=== PATIENT | male | born 1970 | race Caucasian/White ===

== ENCOUNTER 2017-08-19 20:38 | Emergency (ER) | payer OTHER ==
[~2017-08-19] VITALS: Ht 175.3 cm; Wt 104.5 kg
[2017-08-19 20:47] VITALS: BP 181/119; PULSE 77; RESP 18; TEMP 97.9; O2SAT 97
[2017-08-19] MEDS ORDERED: HYDROmorphone HCL PF 2 MG/ML VIAL IVS ONE (21:15)
[2017-08-19] MEDS ORDERED: SODIUM CHLORIDE 0.9% FLUSH 10 ML FLUSH IV FLUSH PRN (21:15)
[2017-08-19] MEDS ORDERED: ALUMINUM/MAGNESIUM/SIMETH 30 ML CUP PO ONE (21:15)
[2017-08-19] MEDS ORDERED: LIDOCAINE VISCOUS 2% SOLN 15 ML UDC PO ONE (21:15)
[2017-08-19] MEDS ORDERED: ONDANSETRON HCL 4 MG/2 ML VIAL IVP ONE (21:15)
[2017-08-19 21:26] LABS: AUTOMATED NEUTROPHIL # 6.6 TH/MM3 (1.8-7.7); BASOPHIL # 0.1 TH/MM3 (0-0.2); BASOPHIL % 0.7 % (0.0-2.0); BILIRUBIN, URINE NEG (NEG); BLOOD, URINE TRACE (NEG); EOSINOPHIL # 0.1 TH/MM3 (0-0.4); EOSINOPHIL % 1.5 % (0.0-4.0); GLUCOSE,URINE NEG (NEG); HEMATOCRIT 46.2 % (39.0-51.0); HEMOGLOBIN 15.6 GM/DL (13.0-17.0); KETONE, URINE 15 mg/dL (NEG); LYMPH % 19.5 % (9.0-44.0); LYMPHOCYTE # 1.8 TH/MM3 (1.0-4.8); MEAN CELL VOLUME 88.6 FL (80.0-100.0); MEAN CORPUSCULAR HEMOGLOBIN 29.9 PG (27.0-34.0); MEAN CORPUSCULAR HGB CONC 33.8 % (32.0-36.0); MEAN PLATELET VOLUME 8.8 FL (7.0-11.0); MONO % 6.6 % (0.0-8.0); MONOCYTE # 0.6 TH/MM3 (0-0.9); NEUT % 71.7 % (16.0-70.0); NITRITE,URINE NEG (NEG); PH, URINE 6.5 (5.0-8.5); PLATELET COUNT 296 TH/MM3 (150-450); RED BLOOD COUNT 5.22 MIL/MM3 (4.50-5.90); RED CELL DISTRIBUTION WIDTH 13.6 % (11.6-17.2); URINE COLOR YELLOW (YELLW/STRAW); URINE LEUKOCYTE ESTERASE NEG (NEG); WHITE BLOOD COUNT 9.2 TH/MM3 (4.0-11.0)
[2017-08-19 21:30] LABS: RBC, URINE 0-2 /hpf (0-3); SQUAMOUS EPITHELIAL CELL URINE 0-5 /hpf (0-5); WBC, URINE 0-2 /hpf (0-5)
[2017-08-19 21:33] LABS: CHLORIDE 108 MEQ/L (98-107); SODIUM (NA) 140 MEQ/L (136-145)
[2017-08-19 21:37] LABS: ALBUMIN 4.3 GM/DL (3.4-5.0); BICARBONATE 27.6 MEQ/L (21.0-32.0); CALCIUM 9.5 MG/DL (8.5-10.1); GLUCOSE,RANDOM 94 MG/DL (74-106)
[2017-08-19 21:38] LABS: BLOOD UREA NITROGEN 23 MG/DL (7-18)
[2017-08-19 21:40] LABS: ALT (GPT) 35 U/L (12-78); AST (GOT) 27 U/L (15-37); GLOMERULAR FILTRATION RATE 72 ML/MIN (>89)
[2017-08-19 21:42] LABS: TOTAL BILIRUBIN ADULT 0.6 MG/DL (0.2-1.0); TOTAL PROTEIN 8.7 GM/DL (6.4-8.2)
[2017-08-19 21:43] LABS: ALKALINE PHOSPHATASE 57 U/L (45-117)
[2017-08-19 21:47] VITALS: O2SAT 97
[2017-08-19 21:50] VITALS: BP 160/110; PULSE 74; RESP 18; O2SAT 97
[2017-08-19] MEDS ORDERED: IOHEXOL 350 MG/ML 10 ML VIAL (for RAD DIAG) IVCONTRAST ONE (21:52)
--- NOTE | 2017-08-19 22:29 | RADRPT ---
EXAM DATE/TIME: 08/19/2017 21:45 [facility] COMPARISON: No previous studies available for comparison. INDICATIONS : Generalized abdominal pain. IV CONTRAST: 100 cc Omnipaque 350 (iohexol) IV ORAL CONTRAST: No oral contrast ingested. RADIATION DOSE: 19.61 CTDIvol (mGy) MEDICAL HISTORY : None SURGICAL HISTORY : None. ENCOUNTER: Initial ACUITY: 1 day PAIN SCALE: 10/10 LOCATION: Bilateral lower quadrant upper quadrant TECHNIQUE: Volumetric scanning of the abdomen and pelvis was performed. Using automated exposure control and ad justment of the mA and/or kV according to patient size, radiation dose was kept as low as reasonably achievable to obtain optimal diagnostic quality images. DICOM format image data is available electro nically for review and comparison. FINDINGS: LOWER LUNGS: The visualized lower lungs are clear. LIVER: Homogeneous density without lesion. There is no dilation of the biliary tree. Faint gallstones are p resent, measuring up to 21 mm. No duct stone or ductal dilatation.. SPLEEN: Normal size without lesion. PANCREAS: Within normal limits. KIDNEYS: Normal in size and shape. There is no mass, stone or hydronephrosis. ADRENAL GLANDS: Within normal limits. VASCULAR: There is no aortic aneurysm. BOWEL/MESENTERY: The stomach, small bowel, and colon demonstrate no acute abnormality. There is no free intraperitone al air or fluid. Normal appendix. ABDOMINAL WALL: Within normal limits. RETROPERITONEUM: There is no lymphadenopathy. BLADDER: No wall thickening or mass. REPRODUCTIVE: Within normal limits. INGUINAL: There is no lymphadenopathy or hernia. MUSCULOSKELETAL: No acute bony abnormality. CONCLUSION: 1. Cholelithiasis without biliary obstruction or convincing evidence of cholecystitis. 2. Otherwise negative CT of the abdomen and pelvis. Jamil Ribeiro MD on August 19, 2017 at 22:25 Board Certified Radiologist. This report was verified electronically.
--- NOTE | 2017-08-19 22:30 | PD ---
HPI Chief Complaint: GI Complaint Time Seen by Provider: 21:02 Travel History International Travel<30 days: No Contact w/Intl Traveler<30days: No Traveled to known affect area: No History of Present Illness HPI The patient is 47 years old and reports a sudden onset of severe abdominal pain. This started about 6 PM, approximately 3 hours prior to ER arrival. Location is generalized though more or less periumbilical in distribution when he points to the area of pain. There is been no vomiting or diarrhea. No similar prior episodes. No fever. Patient denies any unusual food. He has no past medical history. [facility] Past Medical History Medical History: Denies Significant Hx Diminished Hearing: No Tetanus Vaccination: Unknown Influenza Vaccination: No Past Surgical History Surgical History: No Previous Surgery Social History Alcohol Use: No Tobacco Use: No Substance Use: No Allergies-Medications (Allergen,Severity, Reaction): Coded Allergies: No Known Allergies (Verified Allergy, Unknown, 08/19/17) Reported Meds & Prescriptions Reported Meds & Active Scripts Active Zofran Odt (Ondansetron Odt) 4 Mg Tab 4 Mg SL Q8HR PRN Tramadol (Tramadol HCl) 50 Mg Tab 100 Mg PO Q6H PRN Review of Systems Except as stated in HPI: all other systems reviewed are Neg General / Constitutional: No: Fever Physical Exam Narrative GENERAL: 47-year-old male well-nourished well-developed moderate distress Vital Signs Date Time Temp Pulse Resp B/P (MAP) Pulse Ox O2 Delivery O2 Flow Rate FiO2 08/19/17 21:50 74 18 160/110 (127) 97 Room Air 08/19/17 21:47 97 08/19/17 20:49 18 08/19/17 20:47 97.9 77 18 181/119 (139) 97 SKIN: Warm and dry. HEAD: Atraumatic. Normocephalic. EYES: Pupils equal and round. No scleral icterus. No injection or drainage. ENT: No nasal bleeding or discharge. Mucous membranes pink and moist. NECK: Trachea midline. No JVD. CARDIOVASCULAR: Regular rate and rhythm. RESPIRATORY: No accessory muscle use. Clear to auscultation. Breath sounds equal bilaterally. GASTROINTESTINAL: Soft. Generalized nonspecific tenderness with some guarding MUSCULOSKELETAL: Extremities without clubbing, cyanosis, or edema. No obvious deformities. NEUROLOGICAL: Awake and alert. No obvious cranial nerve deficits. Motor grossly within normal limits. Five out of 5 muscle strength in the arms and legs. Normal speech. PSYCHIATRIC: Appropriate mood and affect; insight and judgment normal. Data Data Last Documented VS Vital Signs Date Time Temp Pulse Resp B/P (MAP) Pulse Ox O2 Delivery O2 Flow Rate FiO2 08/20/17 00:07 74 18 97 08/19/17 23:53 Room Air 08/19/17 20:47 97.9 Orders Orders Complete Blood Count With Diff (08/19/17 21:07) Comprehensive Metabolic Panel (08/19/17 21:07) Lipase (08/19/17 21:07) Lactic Acid (08/19/17 21:07) Urinalysis - C+S If Indicated (08/19/17 21:07) Iv Access Insert/Monitor (08/19/17 21:07) Ecg Monitoring (08/19/17 21:07) Oximetry (08/19/17 21:07) Hydromorphone Pf Inj (Dilaudid Pf Inj) (08/19/17 21:15) Ondansetron Inj (Zofran Inj) (08/19/17 21:15) Sodium Chloride 0.9% Flush (Ns Flush) (08/19/17 21:15) Al-Mag Hy-Si 40-40-4 Mg/Ml Liq (Mag-Al P (08/19/17 21:15) Lidocaine 2% Viscous (Xylocaine 2% Visco (08/19/17 21:15) Ct Abd/Pel W Iv Contrast(Rout) (08/19/17 21:07) Drug Screen, Random Urine (08/19/17 21:39) Alcohol (Ethanol) (08/19/17 21:10) Iohexol 350 Inj (Omnipaque 350 Inj) (08/19/17 21:52) Us Abdomen Gallbladder (08/19/17 ) Ed Discharge Order (08/19/17 23:41) Oxycodone-Acetamin 5-325 Mg (Percocet (08/20/17 00:00) Labs Laboratory Tests Test 08/19/17 21:10 White Blood Count 9.2 TH/MM3 Red Blood Count 5.22 MIL/MM3 Hemoglobin 15.6 GM/DL Hematocrit 46.2 % Mean Corpuscular Volume 88.6 FL Mean Corpuscular Hemoglobin 29.9 PG Mean Corpuscular Hemoglobin Concent 33.8 % Red Cell Distribution Width 13.6 % Platelet Count 296 TH/MM3 Mean Platelet Volume 8.8 FL Neutrophils (%) (Auto) 71.7 % Lymphocytes (%) (Auto) 19.5 % Monocytes (%) (Auto) 6.6 % Eosinophils (%) (Auto) 1.5 % Basophils (%) (Auto) 0.7 % Neutrophils # (Auto) 6.6 TH/MM3 Lymphocytes # (Auto) 1.8 TH/MM3 Monocytes # (Auto) 0.6 TH/MM3 Eosinophils # (Auto) 0.1 TH/MM3 Basophils # (Auto) 0.1 TH/MM3 CBC Comment DIFF FINAL Differential Comment Urine Color YELLOW Urine Turbidity CLEAR Urine pH 6.5 Urine Specific Rough And Ready 1.020 Urine Protein NEG mg/dL Urine Glucose (UA) NEG mg/dL Urine Ketones 15 mg/dL Urine Occult Blood TRACE Urine Nitrite NEG Urine Bilirubin NEG Urine Urobilinogen 1.0 MG/DL Urine Leukocyte Esterase NEG Urine RBC 0-2 /hpf Urine WBC 0-2 /hpf Urine Squamous Epithelial Cells 0-5 /hpf Urine Bacteria NONE /hpf Microscopic Urinalysis Comment CULT NOT INDICATED Blood Urea Nitrogen 23 MG/DL Creatinine 1.10 MG/DL Random Glucose 94 MG/DL Total Protein 8.7 GM/DL Albumin 4.3 GM/DL Calcium Level 9.5 MG/DL Alkaline Phosphatase 57 U/L Aspartate Amino Transf (AST/SGOT) 27 U/L Alanine Aminotransferase (ALT/SGPT) 35 U/L Total Bilirubin 0.6 MG/DL Sodium Level 140 MEQ/L Potassium Level 3.8 MEQ/L Chloride Level 108 MEQ/L Carbon Dioxide Level 27.6 MEQ/L Anion Gap 4 MEQ/L Estimat Glomerular Filtration Rate 72 ML/MIN Lactic Acid Level 1.2 mmol/L Lipase 223 U/L Urine Opiates Screen NEG Urine Barbiturates Screen NEG Urine Amphetamines Screen NEG Urine Benzodiazepines Screen NEG Urine Cocaine Screen NEG Urine Cannabinoids Screen NEG Ethyl Alcohol Level LESS THAN 3 MG/DL [facility] Medical Decision Making Medical Screen Exam Complete: Yes Emergency Medical Condition: Yes Medical Record Reviewed: Yes Differential Diagnosis Constipation, Gastritis, Acute Cholecystitis, Biliary Colic, Pancreatitis, JORDAN , Hepatitis, Bowel Obstruction, Cystitis, Mesenteric Ischemia, AAA, Appendicitis , Renal Stone/Hydronephrosis, GERD, perforated viscous, bowel obstruction Narrative Course CBC & BMP Diagram 08/19/17 21:10 Total Protein 8.7 H, Albumin 4.3, Calcium Level 9.5, Alkaline Phosphatase 57, Aspartate Amino Transf (AST/SGOT) 27, Alanine Aminotransferase (ALT/SGPT) 35, Total Bilirubin 0.6 Lipase is normal Urine drug screen is echevarria negative Alcohol levels less than 3 Patient received Dilaudid and IV fluids as well as Zofran because moderate to severe distress appeared present at the time of evaluation. The patient is resting comfortably and feels better, is alert and in no distress. The patients results and examination findings were discussed. The repeat examination is unremarkable and benign. The history, exam, diagnostic testing, and current condition do not suggest any significant pathology to warrant further testing, continued ED treatment, admission, or surgical evaluation at this point. The vital signs have been stable. The patient does not have uncontrollable pain, intractable vomiting, or other significant symptoms. The patient's condition is stable and appropriate for discharge. The patient will pursue further outpatient evaluation with a primary care physician or other designated or consulting physician as indicated in the discharge instructions. The patient expressed understanding and was agreeable with this plan. Diagnosis Primary Impression: Biliary colic Additional Impression: Fatty liver Referrals: Jarret Kirk MD call for appointment Med/Other Pt SpecificInfo: Prescription(s) given Scripts Ondansetron Odt (Zofran Odt) 4 Mg Tab 4 MG SL Q8HR Y for Nausea/Vomiting, #10 TAB 0 Refills Prov: To Alvarez MD 08/19/17 Tramadol (Tramadol) 50 Mg Tab 100 MG PO Q6H Y for PAIN, #20 TAB 0 Refills Prov: To Alvarez MD 08/19/17 Disposition: DISCHARGE HOME Condition: Stable To Alvarez MD Aug 19, 2017 22:30
--- NOTE | 2017-08-19 23:22 | RADRPT ---
EXAM DATE/TIME: 08/19/2017 22:53 [facility] COMPARISON: No previous studies available for comparison. INDICATIONS : Right upper quadrant pain. MEDICAL HISTORY : Right upper quadrant pain. SURGICAL HISTORY : None. ENCOUNTER: Initial ACUITY: 1 day PAIN SCORE: 3/10 LOCATION: Right upper quadrant MEASUREMENTS: LIVER: 18.6 cm length COMMON DUCT: 3 mm RIGHT KIDNEY: 10.0 x 5.6 x 5.2 cm FINDINGS: LIVER: Increased echotexture without focal lesion or ductal dilatation. COMMON DUCT: No intraluminal mass or stone visualized. GALLBLADDER: Multiple gallstones. No pericholecystic fluid PANCREAS: The visualized portions are within normal limits. RIGHT KIDNEY: No evidence of hydronephrosis, stone, or mass. CONCLUSION: 1. Numerous gallstones without biliary ductal dilatation. 2. Mild fatty liver enlarged to 19 cm. Nolan Chavez MD on August 19, 2017 at 23:18 Board Certified Radiologist. This report was verified electronically.
[2017-08-19] MEDS ORDERED: TRAM50TA PO (23:42)
[2017-08-19] MEDS ORDERED: ZOFR4TAB3 SL (23:42)
[2017-08-19 23:53] VITALS: BP 161/96; PULSE 74; RESP 18; O2SAT 97
[2017-08-20] MEDS ORDERED: oxyCODONE/ACETAMINOPHEN 5 MG/325 MG TAB PO ONE
== END 2017-08-20 00:25 | disposition home or self-care (01) ==
LOC: PHED 20:38
DX: K80.70 Calculus of gallbladder and bile duct without cholecystitis without obstruction (principal); K76.0 Fatty (change of) liver, not elsewhere classified
CPT/HCPCS: 74177; 76705; 80053; 80307; 81001; 83605; 83690; 85025; 96374; 96375; 99285; J1170; J2405; Q9967